=== PATIENT | female | born 1980 | race Caucasian/White ===

== ENCOUNTER 2022-04-10 09:40 | Outpatient (CLI) | payer BC | END 2022-04-10 09:41 | disposition home or self-care (01) | LOC: BICRAD 09:40 | PROVIDERS: ATTEND Obstetrics & Gynecology Gynecologic Oncology | DX: R19.07 Generalized intra-abdominal and pelvic swelling, mass and lump (principal); N73.6 Female pelvic peritoneal adhesions (postinfective) | CPT/HCPCS: 71046 ==